=== PATIENT | female | born 1985 | race Caucasian/White ===

== ENCOUNTER 2017-12-24 17:37 | Emergency (ER) | payer MEDICAID, SELFPAY ==
[2017-12-24 17:38] VITALS: BP 117/86; PULSE 89; RESP 21; TEMP 37.1; O2SAT 100; BMI 44.8
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
[2017-12-24] MEDS: Ibuprofen 600 MG Tablet PO (19:28)
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
[2017-12-24 20:57] VITALS: BP 99/51; PULSE 79; RESP 15; O2SAT 100
== END 2017-12-24 20:58 | disposition home or self-care (01) ==
PROVIDERS: Emergency Provider Emergency Medicine
DX: S80.01XA Contusion of right knee, initial encounter (principal); R51 Headache; M54.5 Low back pain; M54.6 Pain in thoracic spine; M25.552 Pain in left hip; M79.644 Pain in right finger(s); V43.52XA Car driver injured in collision with other type car in traffic accident, initial encounter; Y93.9 Activity, unspecified; Y92.9 Unspecified place or not applicable; Y99.9 Unspecified external cause status; Z72.0 Tobacco use
CPT/HCPCS: 70450; 72072; 72100; 72125; 73130; 73502; 73564; 99284